=== PATIENT | female | born 1970 | race Asian ===

== ENCOUNTER 2016-10-08 18:59 | Emergency (ER) | payer BC ==
[~2016-10-08] VITALS: Ht 162.6 cm; Wt 68.9 kg
[2016-10-08] MEDS ORDERED: GLIP5TAB10 PO (19:41)
[2016-10-08] MEDS ORDERED: ONDANSETRON 2MG/ML, 2ML IVPush ONE (20:00)
[2016-10-08] MEDS ORDERED: SODIUM CHLORIDE FLUSH 10ML SYR IVF ONE (20:00)
[2016-10-08] MEDS ORDERED: MORPHINE SULFATE 4 MG/ML, 1ML IVPush PRN (20:00)
[2016-10-08] MEDS ORDERED: SODIUM CHLORIDE 0.9% 1,000ML IVBOLUS ONE (20:00)
[2016-10-08 20:06] LABS: BLOOD UREA NITROGEN 12 mg/dL (7-18)
[2016-10-08 20:09] LABS: ASPARTATE AMINO TRANSFERASE 16 U/L (15-37)
[2016-10-08 20:10] LABS: IS PT STATUS REG ER OR PRE ER? YES
[2016-10-08] MEDS ORDERED: OMNIPAQUE 350 MG/ML, 100ML BOTTLE ONE (20:59)
[2016-10-08 21:27] VITALS: BP 125/77
== END 2016-10-08 21:56 | disposition home or self-care (01) ==
LOC: ED 21:28
DX: R10.12 Left upper quadrant pain (principal); N30.00 Acute cystitis without hematuria; E11.9 Type 2 diabetes mellitus without complications; I10 Essential (primary) hypertension
CPT/HCPCS: 36415; 74177; 80053; 81001; 83690; 84484; 85025; 86677; 87077; 87086; 87186; 93005; 96360; 99285; J7030; Q9967

== ENCOUNTER 2017-04-21 19:25 | Emergency (ER) | payer BC ==
[~2017-04-21] VITALS: Ht 162.6 cm; Wt 73.1 kg
[~2017-04-21 19:25] MED LIST: GLIP5TAB10 PO
[2017-04-21 19:49] VITALS: BP 147/84
[2017-04-21 20:46] LABS: MICROSCOPIC NOT IND
[2017-04-21 20:49] LABS: CULTURE INDICATED? NO
== END 2017-04-21 21:42 | disposition home or self-care (01) ==
LOC: ED 21:20
DX: M54.5 Low back pain (principal); E11.9 Type 2 diabetes mellitus without complications; I10 Essential (primary) hypertension; F17.210 Nicotine dependence, cigarettes, uncomplicated
CPT/HCPCS: 74176; 81003; 99285